=== PATIENT | male | born 1940 | race Caucasian/White ===

== ENCOUNTER 2017-01-03 14:31 | Inpatient (IN) | payer MEDICARE, MEDICAID ==
[2017-01-03 15:28] LABS: ABSOLUTE NEUTROPHIL COUNT 7.7 K/mm3 (1.8-7.7); BASO # 0.1 K/mm3 (0.0-0.2); BASO % 0.5 % (0.2-1.0); EOS % 0.2 % (0.9-2.9); HEMATOCRIT 32.6 % (32.0-52.0); IMM NEUT # 0.2 K/mm3 (0-0.2); IMM NEUT% 1.5 % (0-1); LYMPH % 9.4 % (15-45); MEAN CELL VOLUME 100.3 fl (80.0-94.0); MEAN CORPUSCULAR HEMOGLOBIN 30.8 pg (27.0-31.0); MEAN CORPUSCULAR HGB CONC 30.7 g/dl (33.0-37.0); MEAN PLATELET VOLUME 9.8 fl (7.4-10.4); MONO # 1.9 (0.0-0.8); MONO % 17.7 % (4-12); NEUT % 70.7 % (43-75); PLATELET COUNT 173 K/mm3 (130-400); RED CELL DISTRIBUTION WIDTH 15.9 % (11.5-14.5)
[2017-01-03 15:54] LABS: ALB/GLOB RATIO 0.8 (>1.0); ALBUMIN 3.7 gm/dL (3.5-5.7); CALCIUM 9.1 mg/dL (8.6-10.3)
[2017-01-03 15:55] LABS: CKMB ISOENZYME 1.9 ng/ml (0.6-6.3)
[2017-01-03 16:01] LABS: TROPONIN I 0.08 ng/ml (0.0-0.06)
--- NOTE | 2017-01-03 16:03 | RAD ---
CHEST-AP BEDSIDE HISTORY: Cough for 4 days. COMPARISONS: None. FINDINGS: An AP upright view of the chest was performed demonstrating prior median sternotomy with a metallic appliance projecting along the left cardiac margin. The heart size is borderline prominent. There is mild diffuse interstitial prominence observed with linear right basilar atelectasis or scarring identified. No effusion or pneumothorax is seen. The hilar and mediastinal structures are intact. IMPRESSION: 1. Borderline cardiac size. 2. Mild diffuse bilateral interstitial prominence which may reflect mild interstitial edema or possibly chronic changes. 3. Right basilar atelectasis or scarring. 4. Prior median sternotomy.
[2017-01-03] MEDS ORDERED: CEFTRIAXONE 1 GRAM DUPLEX 50 ML IV ONE (16:47)
[2017-01-03] MEDS ORDERED: AZITHROMYCIN 250 MG TABLET ONE (16:47)
[2017-01-03 16:49] LABS: SPECIFIC GRAVITY 1.015 (1.001-1.030); URINE BILIRUBIN NEGATIVE (NEGATIVE); URINE BLOOD 2+ (NEGATIVE); URINE GLUCOSE (UA) NEGATIVE (NEGATIVE); URINE LEUKOCYTE ESTERASE NEGATIVE (NEGATIVE); URINE NITRITE NEGATIVE (NEGATIVE); URINE PROTEIN TRACE (NEGATIVE); URINE UROBILINOGEN NORMAL (0-1 mg/dl)
[2017-01-03 16:51] LABS: URINE APPEARANCE CLEAR; URINE COLOR YELLOW
--- NOTE | 2017-01-03 16:52 | CT ---
Exam Type: ABD/PELVIS W/O CON Date and Time: 01/03/2017 4:02 PM Clinical information: Abdomen distention. Comparison: None Procedure: Imaging device: [employer] Aquilion [address] scanner 1 mm axial images were obtained through the abdomen and pelvis. Stacked reconstructed 3, 4 and 5 mm images were photographed in the axial coronal and sagittal planes. No oral contrast was utilized for this examination. Exam: Without intravenous contrast. FINDINGS: Lung bases: Scans through the lung bases demonstrate a small amount of right basilar pleural fluid which may be partially loculated. There is associated right basilar atelectasis or infiltrate noted as well. The heart size is enlarged with dense calcification of the mitral annulus. There is evidence of prior median sternotomy. Liver: the liver is homogeneous with no discrete abnormality visualized. No definite findings of biliary dilatation are observed. Spleen: The spleen is homogeneous and does not appear to be enlarged. Gallbladder: Normal without enlargement or evidence of adjacent inflammatory changes. Pancreas: Pancreatic tissue is not well visualized and may be significantly fatty infiltrated particularly in the region of the body and tail. There is what may be a small amount of pancreatic head tissue located adjacent to a solid-appearing mass on image 35 measuring 4.3 x 4.2 cm transversely. This may reflect a large lymph node or possibly a focal mass, possibly arising from the pancreas itself. Adrenal glands: Normal without enlargement or evidence of adjacent inflammatory changes. Abdominal aorta: Atherosclerotic vascular calcification is present. There is no focal aneurysm visualized. Kidneys: The kidneys are of symmetric size with no perinephric inflammatory stranding visualized. There is evidence of an 8 mm intrarenal calcification within the inferior portion of the right kidney. No ureteral calculus is visualized. Bowel structures: The visualized bowel is of normal caliber without evidence of dilatation or obstruction. No free fluid or mesenteric inflammatory changes are identified. Appendix: Not well visualized. Bladder: The bladder is of normal contour. No wall thickening or significant distention is observed. Hernia: Bilateral fat filled inguinal hernias are present. Adenopathy: A few retroperitoneal lymph nodes are identified with one on image 36 demonstrating a short axis dimension of 14 mm and another on image 42 demonstrating a short axis dimension of 7 mm. Osseous structures: Multilevel thoracic and lumbar degenerative changes are present with flowing lower thoracic osteophyte formation. Pelvic structures: No discrete pelvic abnormalities are visualized in this examination. IMPRESSION: 1. No current findings of obstruction identified. 2. Poor visualization of the pancreas which may be due to significant fatty infiltration. However, there is a solid 4.3 cm mass adjacent to the expected location of the pancreatic head with considerations including a primary neoplastic process possibly of pancreatic origin versus an enlarged lymph node. 3. Mild retroperitoneal adenopathy. 4. A partially loculated right pleural effusion with right basilar atelectasis or scarring. 5. Cardiomegaly with dense calcification of the mitral annulus. 6. An 8 mm right-sided intrarenal calculus. No definite ureteral calculus is observed. 7. Nonvisualization of the appendix. 8. Bilateral fat filled inguinal hernias. 9. Prominent thoracic and lumbar degenerative changes.
[2017-01-03 17:02] LABS: URINE BACTERIA 0; URINE EPITHELIAL CELLS 0 /hpf; URINE WBC RARE /hpf
[2017-01-03 19:46] VITALS: BMI 29.6
[2017-01-03] MEDS ORDERED: MAGNESIUM HYDROXIDE 30 ML UDCUP PO PRN (20:25)
[2017-01-03] MEDS ORDERED: ACETAMINOPHEN 325 MG TABLET PO PRN (20:25)
[2017-01-03] MEDS ORDERED: SODIUM CHLORIDE 0.9% 100 ML IV ONE (20:38)
[2017-01-03] MEDS ORDERED: PUMP TUBING ONE (20:39)
[2017-01-03] MEDS ORDERED: BLISTEX LIPSTICK 1 EACH TP PRN (20:43)
[2017-01-03] MEDS ORDERED: MENTHOL/CETYLPYRD 1 EACH LOZENGE PO PRN (20:43)
[2017-01-03] MEDS ORDERED: PROBENECID 500 MG TABLET PO SCH (21:00)
[2017-01-03] MEDS ORDERED: POTASSIUM CHLORIDE 20 MEQ TAB.PRT.SR PO SCH (21:00)
[2017-01-03] MEDS ORDERED: INSULIN ASPART (DOSE) 100 UNITS/1 ML SUB-Q PRN (21:07)
[2017-01-03 21:09] LABS: INR 1.6; PROTHROMBIN TIME 17.2 SECONDS (9.3-11.4)
[2017-01-03] MEDS ORDERED: BUMETANIDE 0.25 MG/ML 4ML VIAL IV ONE (21:09)
[2017-01-03] MEDS ORDERED: FUROSEMIDE 40 MG/4 ML VIAL IV ONE (21:20)
[2017-01-03] MEDS: DOXYCYCLINE HYCLATE 100 MG in NS 0.9% (MINI-BAG PLUS) 100 ML IV SCH (21:35)
[2017-01-03] MEDS: SODIUM CHLORIDE 0.9% 100 ML IV PRN (21:36)
[2017-01-03] MEDS: PANTOPRAZOLE 40 MG TABLET DR PO SCH (21:58)
[2017-01-03] MEDS: MIRTAZAPINE 15 MG TABLET PO SCH (21:58)
[2017-01-03] MEDS: ATORVASTATIN CALCIUM 40 MG TABLET PO SCH (21:59)
[2017-01-03] MEDS: PREGABALIN 50 MG CAP PO SCH (21:59)
[2017-01-03] MEDS: SENNA/DOCUSATE SODIUM 8.6/50 MG EACH TABLET PO SCH (22:00)
[2017-01-03] MEDS ORDERED: FLU VACC 2016-17 (65 YR+)/PF 180 MCG/0.5 ML SYRINGE IM V ONE (22:02)
[2017-01-03] MEDS ORDERED: PNEUMOCOCCAL 23-VAL P-SAC VAC 0.5 ML VIAL SUB-Q V ONE (22:02)
[2017-01-03] MEDS: ALBUTEROL NEB 2.5 MG/3 ML VIAL.NEB NEB PRN (23:47)
[2017-01-03] MEDS ORDERED: FUROSEMIDE 40 MG/4 ML VIAL ONE (23:58)
[2017-01-04] MEDS: CLOTRIMAZOLE 1% 15 APPLIC/15 G CREAM TP SCH ×3 (00:07→21:55)
[2017-01-04] MEDS: POTASSIUM CHLORIDE 20 MEQ TAB.PRT.SR PO SCH ×3 (00:09→15:33)
[2017-01-04 07:04] LABS: ABSOLUTE NEUTROPHIL COUNT 7.9 K/mm3 (1.8-7.7); BASO # 0.1 K/mm3 (0.0-0.2); BASO % 0.6 % (0.2-1.0); EOS % 0.3 % (0.9-2.9); HEMATOCRIT 32.8 % (32.0-52.0); HEMOGLOBIN 9.9 gm/l (14.0-18.0); IMM NEUT # 0.1 K/mm3 (0-0.2); IMM NEUT% 1.2 % (0-1); LYMPH # 0.9 (1.0-4.8); MEAN CORPUSCULAR HEMOGLOBIN 30.2 pg (27.0-31.0); MEAN CORPUSCULAR HGB CONC 30.2 g/dl (33.0-37.0); MEAN PLATELET VOLUME 9.6 fl (7.4-10.4); MONO # 1.6 (0.0-0.8); MONO % 15.1 % (4-12); NEUT % 74.8 % (43-75); PLATELET COUNT 163 K/mm3 (130-400); RED CELL DISTRIBUTION WIDTH 15.9 % (11.5-14.5)
[2017-01-04 07:15] LABS: INR 1.61; PROTHROMBIN TIME 17.3 SECONDS (9.3-11.4)
[2017-01-04 07:22] LABS: CALCIUM 8.9 mg/dL (8.6-10.3)
--- NOTE | 2017-01-04 07:28 | HP ---
Jorge Luis Castillo [id number] : 1940 DATE OF ADMISSION: 01/03/2017 IDENTIFICATION: Mr. Castillo is a 76-year-old followed by Dr. Migdalia Glass at [facility]. CHIEF COMPLAINT: Cough and shortness of breath. HISTORY OF PRESENT ILLNESS: Mr. Castillo recently moved to [facility] from another assisted living facility in [facility]. He has not previously been at [facility] and we have no previous records. He presented to the emergency room today with complaint of 4 day history of cough with green sputum and increasing shortness of breath. He has had weakness, but denies other symptoms. On evaluation he appeared to have pneumonia and congestive heart failure exacerbation and he was referred to the hospitalist service for admission and treatment. REVIEW OF SYSTEMS: HEENT: Denies lightheadedness, headache, or fainting. Denies problems with ears, eyes, nose, or throat. Respiratory: As per history of present illness. Cardiac: Denies chest pains or palpitations. Gastrointestinal: Denies nausea, vomiting, or reflux. Denies diarrhea, constipation, hematochezia, or melena. Genitourinary: Denies dysuria or urgency. Musculoskeletal: Generalized weakness. Constitutional: Denies fevers or chills. PAST MEDICAL HISTORY: 1. Diabetes mellitus type 2. 2. Diabetic peripheral neuropathy. 3. Dyslipidemia. 4. Major depressive disorder. 5. Obstructive sleep apnea not treated with CPAP. 6. Benign hypertension. 7. Coronary artery disease. 8. Pulmonary hypertension. 9. Mitral valve stenosis. 10. Aortic valve stenosis. 11. Chronic atrial fibrillation on warfarin anticoagulation. 12. Chronic diastolic congestive heart failure. 13. Gastroesophageal reflux disease. 14. Gout. 15. Macular degeneration and cataracts. PAST SURGICAL HISTORY: Unknown, patient denies having any surgery despite a median sternotomy scar and a vertical scar in the abdomen at the level of the umbilicus. He appears to have had at least right eye surgery as well. ALLERGIES: FROM THE MEDICATION ADMINISTRATION RECORDS FROM [facility] ALLOPURINOL, FUROSEMIDE, AND GABAPENTIN WERE LISTED. MEDICATIONS: 1. Atorvastatin 40 mg by mouth nightly. 2. Ferrous sulfate 325 mg by mouth daily. 3. Folic acid 1 mg by mouth daily. 4. Metoprolol succinate 12.5 mg by mouth daily. 5. Mirtazapine 7.5 mg by mouth nightly. 6. Omeprazole 20 mg by mouth daily. 7. Pregabalin 100 mg by mouth nightly. 8. Furosemide 60 mg in the morning, 40 mg in the evening. 9. Warfarin 5 mg Monday, Monday, Monday, Monday, 7.5 mg Monday, , Monday. 10. Potassium chloride 60 mg by mouth twice daily. 11. Probenecid 500 mg by mouth twice daily. 12. Acetaminophen 650 by mouth every 6 hours as needed. 13. Senna with docusate sodium 1 twice daily. 14. Fwgt-nr-mbbahxtm 30 mL by mouth daily as needed. HABITS: He denies any current or past history of alcohol or tobacco use. SOCIAL HISTORY: He is a resident of [facility], says he has been there for just a few weeks. He is single and has no family other than a brother who lives in [facility]. CODE STATUS: Discussed and he would like everything attempted. FAMILY HISTORY: He is not aware of any medical conditions that run in the family. PHYSICAL EXAM: GENERAL: This is an elderly gentleman with audible congestion and wheezing. VITAL SIGNS: Temperature 98.1 degrees Fahrenheit, blood pressure 113/77, pulse 98, respiratory rate 22, oxygen saturation was 81% on room air on presentation to the emergency department. HEENT: Head is atraumatic. Eyes show marked exophthalmoses. The right pupils is irregular, left is round and reactive. Oropharynx somewhat dry. CHEST: Inspiratory rhonchi and expiratory wheezes throughout. HEART: Regular with 3/6 harsh systolic murmur. There is a well healed midline sternotomy scar. ABDOMEN: Soft, obese, nontender, normal bowel tones. No organomegaly. As noted there is a well healed vertical scar at the level of the umbilicus and the umbilicus itself has been excised. EXTREMITIES: Moderate dorsalis pedis pulses. Trace edema with compression stocking on bilaterally. NEUROLOGIC: No focal deficits, but clearly has some memory deficits. LABORATORY: White blood cell count 10.9, hemoglobin and hematocrit 10.0 and 32.6, platelets 173. Lactate 1.4. Sodium 137, potassium 4.1, chloride 93, CO2 35, BUN 34, creatinine 1.9, glucose 142. CPK is 383, MB fraction normal at 1.9. Troponin I borderline at 0.08. B-type natiuretic peptide elevated at 566. Albumin is 3.7. Urinalysis specific gravity of 1.015, trace protein, 2+ blood, negative microscopic. Influenza A and B are negative. DIAGNOSTICS: Chest x-ray shows borderline cardiac size, bilateral interstitial prominence consistent with pulmonary edema and right basilar atelectasis or scarring. CT of the abdomen and pelvis multiple findings including poor visualization of the pancreas, but a possible solid mass at the pancreatic head, mild retroperitoneal adenopathy, partially loculated right pleural effusion, cardiomegaly with dense calcification of the mitral annulus, 8 mm right sided infrarenal calculus, absent appendix, bilateral fat filled inguinal hernia's, and prominent thoracic and lumbar degenerative changes. EKG atrial fibrillation with right bundle branch block rate controlled at 88. ASSESSMENT: Mr. Castillo is a 76-year-old who presents with: 1. Community acquired presumed bacterial pneumonia with sepsis (SIRS with tachycardia and tachypnea due to infection) 2. Acute on chronic diastolic heart failure. 3. Anemia which is probably chronic considering his iron and folate prescriptions, but unknown cause. 4. Renal insufficiency which is unclear if it is chronic, acute, or both. 5. Diabetes type 2 complicated by neuropathy. 6. Coronary artery disease possibly post bypass grafting. 7. Valvular heart disease with mitral and aortic stenosis. 8. Chronic atrial fibrillation on anticoagulation. 9. Mildly elevated troponin due to stress ischemia from the pneumonia and congestive heart failure exacerbation. This does not indicate an acute coronary syndrome. 10. Unclear degree of chronic dementia. 11. Multiple other conditions as listed above. PLAN: 1. Admit to med/surg. 2. Treatment for pneumonia with intravenous ceftriaxone and doxycycline. 3. Supplemental oxygen and nebulizer treatments. 4. Diuresis with intravenous furosemide and plan to check echocardiogram. 5. Repeat laboratories to further evaluate renal condition and anemia. 6. Diabetic diet. Blood sugars before meals and bedtime. Insulin coverage as necessary. 7. Physical and occupational therapy evaluation. 8. He was given a dose of azithromycin in the emergency department and his pro time is pending, but will probably be increased by the azithromycin. I will hold his warfarin tonight, but given that he is anticoagulated with warfarin he does not require additional venous thromboembolism prophylaxis. 9. Full code status. 10. Further care as indicated by clinical course. JOB: [id number]
[2017-01-04 07:43] LABS: FERRITIN 147.8 ng/mL (23.9-336.2)
[2017-01-04 07:46] LABS: FOLIC ACID > 23.7 ng/mL (>5.9)
[2017-01-04] MEDS: ALBUTEROL/IPRATROPIUM 2.5/0.5 MG 3 ML/EACH DOSE NEB SCH ×4 (08:31→20:03)
[2017-01-04] MEDS: METOPROLOL SUCCINATE 25 MG TAB.ER.24H PO SCH (08:36)
[2017-01-04] MEDS: FERROUS SULFATE (65 Fe) 325 MG TABLET PO SCH (08:36)
[2017-01-04] MEDS: DOXYCYCLINE HYCLATE 100 MG in NS 0.9% (MINI-BAG PLUS) 100 ML IV SCH ×2 (08:36→21:58)
[2017-01-04] MEDS: VENLAFAXINE HCL XR 150 MG CAPSULE.DR PO SCH (08:36)
[2017-01-04] MEDS: FUROSEMIDE 40 MG/4 ML VIAL IV SCH ×2 (08:36→15:33)
[2017-01-04] MEDS: SENNA/DOCUSATE SODIUM 8.6/50 MG EACH TABLET PO SCH ×2 (08:37→21:55)
[2017-01-04] MEDS: FOLIC ACID 1 MG TABLET PO SCH (08:37)
[2017-01-04] MEDS: PROBENECID 500 MG TABLET PO SCH ×2 (08:37→21:57)
[2017-01-04] MEDS: PANTOPRAZOLE 40 MG TABLET DR PO SCH (08:38)
--- NOTE | 2017-01-04 13:24 | PDOC43 ---
- Subjective Chief Complaint: cough with green sputum and dyspnea. Sitting up in chair receiving nebulizer treatment, coughing fit during exam but states that he is a little better, urinating a lot. - Objective Vital Signs Temperature 98.7 F 01/04/17 11:27 Pulse Rate 76 01/04/17 12:43 Respiratory Rate 18 01/04/17 12:43 Blood Pressure 113/75 01/04/17 11:27 O2 Saturation by Pulse Oximetry 92 01/04/17 12:43 Oxygen Delivery Method Nasal Cannula Oxygen Flow Rate 2 Intake and Output 01/03/17 01/04/17 01/05/17 06:59 06:59 06:59 Intake Total 825 Output Total 778 Balance 47 General: Alert, Cooperative, Mild Distress, No Oriented x3 HEENT: Mucous membr. moist/pink Lungs: Diminished at Bases, Other (crackles and exp wheezes but less than last p.m.) Cardiovascular: Regular Rate and Rhythm, Murmur (harsh 3/6 systolic) Abdomen: Soft, Normal Bowel Sounds, No Tenderness, No Masses Extremities: Edema (trace), Pulses Diminished but Palpable Neurological: Normal Speech Psych/Mental Status: Normal Mood Laboratory 01/04/17 06:10 01/04/17 06:10 01/04/17 01/04/17 01/04/17 11:37 06:56 06:10 RBC 3.28 L MCV 100.0 H MCHC 30.2 L RDW 15.9 H PT 17.3 H BUN 31 H Estimated GFR 42 L POC Capillary Glucose 172 H 148 H Iron 25 L % Immature Granulocyt 1.2 H 01/03/17 21:01 RBC MCV MCHC RDW PT BUN Estimated GFR POC Capillary Glucose 129 H Iron % Immature Granulocyt Current Medications: Current meds reviewed in EMR. - Problems: Assessment/Plan (1) CHF (congestive heart failure) Qualifiers: Congestive heart failure type: diastolic Congestive heart failure chronicity: acute on chronic Qualifier Code: (I50.33) Acute on chronic diastolic (congestive) heart failure Status: AcuteAssessment/Plan: History of chronic diastolic heart failure now in acute exacerbation. Continue diuresis and check ECHO for systolic component. (2) Pneumonia Qualifiers: Pneumonia type: due to unspecified organism Laterality: right Lung location: lower lobe of lung Qualifier Code: (J18.1) Lobar pneumonia, unspecified organism Status: AcuteAssessment/Plan: presumed bacterial pneumonia with purulent sputum present on admit. Sepsis secondary to bacterial pneumonia as defined by SIRS (pulse 98, resp rate 22 in ER) due to infection. Continue treatment with ceftriaxone and doxycycline. (3) Renal insufficiency Status: AcuteAssessment/Plan: Acute kidney injury improving with creatinine down from 1.9-->1.6 Likely underlying KCD, severity to be determined. (4) Weakness Status: AcuteAssessment/Plan: Due to acute CHF, Pneumonia, Sepsis. Will have PT/OT evaluation and treatment. (5) Anemia Qualifiers: Anemia type: iron deficiency Status: ChronicAssessment/Plan: Chronic iron deficiency and likely related to CKD as well, stable. (6) Aortic valvar stenosis Qualifiers: Cardiac valve disease etiology: nonrheumatic Qualifier Code: (I35.0) Nonrheumatic aortic (valve) stenosis Status: ChronicAssessment/Plan: and chronic mitral stenosis, contributing to chronic and acute hear failure, check ECHO for severity. (7) Atrial fibrillation Qualifiers: Atrial fibrillation type: chronic Qualifier Code: (I48.2) Chronic atrial fibrillation Status: ChronicAssessment/Plan: Rate controlled and anti-coagulated but INR is sub-therapeutic, Warfarin per pharmacy (8) CAD (coronary artery disease) Qualifiers: Coronary Disease-Associated Artery/Lesion type: [place] artery [place] vs. transplanted heart: [place] heart Associated angina: without angina Qualifier Code: (I25.10) Atherosclerotic heart disease of [place] coronary artery without angina pectoris Status: ChronicAssessment/Plan: Stable, no ACS. Borderline elevated troponin on admit due to strain of acute CHF and pneumonia. (9) Depression Qualifiers: Depression Type: major depressive disorder Major depression recurrence : recurrent Major depression episode severity: unspecified Status: Chronic Assessment/Plan: Continue Venlafixine and Mirtazapine (10) Diabetes type 2, controlled Qualifiers: Diabetes mellitus complication status: with neurologic complications Diabetes mellitus complication detail: with polyneuropathy Diabetes mellitus predatory animal exterminator insulin use: without detention use Qualifier Code: ( E11.42) Type 2 diabetes mellitus with diabetic polyneuropathy Status: ChronicAssessment/Plan: Diet controlled at baseline, continue correction dose insulin as needed. VTE Prophylaxis: warfarin Disposition: Return to [facility] vs. SNF rehab in 2-4 days.
[2017-01-04] MEDS: CEFTRIAXONE 1 GRAM DUPLEX 1 G in Premix (D5W) 50 ml 1 EACH IV SCH (15:33)
[2017-01-04] MEDS ORDERED: WARFARIN SODIUM 5 MG TABLET PO SCH (16:00)
[2017-01-04] MEDS ORDERED: WARFARIN PER PHARMACY 1 EACH DOSE PO SCH (16:00)
[2017-01-04 20:43] LABS: INR 1.66
[2017-01-04] MEDS: MIRTAZAPINE 15 MG TABLET PO SCH (21:55)
[2017-01-04] MEDS: ATORVASTATIN CALCIUM 40 MG TABLET PO SCH (21:56)
[2017-01-04] MEDS: PREGABALIN 50 MG CAP PO SCH (21:56)
[2017-01-05 06:59] LABS: ABSOLUTE NEUTROPHIL COUNT 5.3 K/mm3 (1.8-7.7); BASO % 0.5 % (0.2-1.0); EOS # 0.1 (0.0-0.5); EOS % 1.6 % (0.9-2.9); HEMATOCRIT 31.8 % (32.0-52.0); HEMOGLOBIN 9.5 gm/l (14.0-18.0); IMM NEUT # 0.1 K/mm3 (0-0.2); LYMPH # 1.2 (1.0-4.8); MEAN CORPUSCULAR HEMOGLOBIN 29.9 pg (27.0-31.0); MEAN CORPUSCULAR HGB CONC 29.9 g/dl (33.0-37.0); MEAN PLATELET VOLUME 9.6 fl (7.4-10.4); MONO % 13.5 % (4-12); NEUT % 68.4 % (43-75); PLATELET COUNT 137 K/mm3 (130-400); RED CELL DISTRIBUTION WIDTH 16.2 % (11.5-14.5)
[2017-01-05] MEDS: ALBUTEROL/IPRATROPIUM 2.5/0.5 MG 3 ML/EACH DOSE NEB SCH ×5 (07:57→20:33)
[2017-01-05 09:13] LABS: INR 1.52; PROTHROMBIN TIME 16.3 SECONDS (9.3-11.4)
[2017-01-05] MEDS: DOXYCYCLINE HYCLATE 100 MG in NS 0.9% (MINI-BAG PLUS) 100 ML IV SCH ×2 (09:27→20:31)
[2017-01-05] MEDS: VENLAFAXINE HCL XR 150 MG CAPSULE.DR PO SCH (09:27)
[2017-01-05] MEDS: SENNA/DOCUSATE SODIUM 8.6/50 MG EACH TABLET PO SCH ×2 (09:27→20:32)
[2017-01-05] MEDS: FUROSEMIDE 40 MG/4 ML VIAL IV SCH ×2 (09:27→16:26)
[2017-01-05] MEDS: PANTOPRAZOLE 40 MG TABLET DR PO SCH (09:28)
[2017-01-05] MEDS: PROBENECID 500 MG TABLET PO SCH ×2 (09:28→20:32)
[2017-01-05] MEDS: ASCORBIC ACID 250 MG TABLET PO SCH (09:28)
[2017-01-05] MEDS: POTASSIUM CHLORIDE 20 MEQ TAB.PRT.SR PO SCH ×2 (09:28→16:26)
[2017-01-05] MEDS: FERROUS SULFATE (65 Fe) 325 MG TABLET PO SCH (09:28)
[2017-01-05] MEDS: METOPROLOL SUCCINATE 25 MG TAB.ER.24H PO SCH (09:28)
[2017-01-05] MEDS: FOLIC ACID 1 MG TABLET PO SCH (09:29)
--- NOTE | 2017-01-05 13:49 | RAD ---
Exam: Two-view chest COMPARISON: 01/03/[address] abdomen 01/03/2017 INDICATION: Suspected pneumonia. FINDINGS: PA and lateral views of the chest were obtained. Postsurgical changes of median sternotomy and valve replacement are again appreciated. Left atrial appendage clip is noted. Cardiomegaly is similar. Lungs are well-inflated. Right basilar pleural-parenchymal disease seen on recent CT remains. Minor blunting of the left costophrenic angle is noted and also stable, reflecting underlying scarring. Upper lungs are clear. Bridging osteophytes are seen within the spine. IMPRESSION: Right basilar pleural-parenchymal disease, similar to that seen on CT 2 days ago, which is of uncertain chronicity and therefore radiology given lack of remote comparison. Pneumonia cannot be excluded.
--- NOTE | 2017-01-05 14:40 | PDOC43 ---
- Subjective Chief Complaint: cough with green sputum and dyspnea. Subjective: Reports Tolerating Diet Well, Reports Shortness of Breath (and mild hypoxia with exertion), Denies Chest Pain, Denies Fever - Objective Vital Signs Temperature 97.8 F 01/05/17 11:53 Pulse Rate 70 01/05/17 12:10 Respiratory Rate 18 01/05/17 13:51 Blood Pressure 107/71 01/05/17 12:00 O2 Saturation by Pulse Oximetry 93 01/05/17 12:10 Oxygen Delivery Method Room Air Oxygen Flow Rate 0 Intake and Output 01/04/17 01/05/17 01/06/17 06:59 06:59 06:59 Intake Total 825 2255 620 Output Total 778 1350 Balance 47 905 620 General: Alert, Oriented x3, Cooperative, No Acute Distress HEENT: Mucous membr. moist/pink Lungs: Other (ronchi over right base) Cardiovascular: Regular Rate and Rhythm Abdomen: Soft, Normal Bowel Sounds, Non-Distended, No Tenderness Extremities: Edema (one plus) Skin: Warm, Dry, Intact Laboratory 01/05/17 06:15 01/05/17 06:15 01/05/17 01/05/17 01/05/17 12:19 08:50 06:15 RBC 3.18 L MCV 100.0 H MCHC 29.9 L RDW 16.2 H PT 16.3 H BUN 33 H Estimated GFR 45 L POC Capillary Glucose 116 H 01/04/17 01/04/17 01/04/17 21:54 18:45 16:38 RBC MCV MCHC RDW PT 18.0 H BUN Estimated GFR POC Capillary Glucose 150 H 143 H Current Medications: Current meds reviewed in EMR. - Problems: Assessment/Plan (1) CHF (congestive heart failure) Qualifiers: Congestive heart failure type: diastolic Congestive heart failure chronicity: acute on chronic Qualifier Code: (I50.33) Acute on chronic diastolic (congestive) heart failure Status: AcuteAssessment/Plan: History of chronic diastolic heart failure now in acute exacerbation. Continue diuresis and ECHO shows LVEF of 40-45%. (2) Pneumonia Qualifiers: Pneumonia type: due to unspecified organism Laterality: right Lung location: lower lobe of lung Qualifier Code: (J18.1) Lobar pneumonia, unspecified organism Status: AcuteAssessment/Plan: presumed bacterial pneumonia with purulent sputum present on admit. Sepsis secondary to bacterial pneumonia as defined by SIRS (pulse 98, resp rate 22 in ER) due to infection. Continue treatment with ceftriaxone and doxycycline. (3) Renal insufficiency Status: AcuteAssessment/Plan: Acute kidney injury improving with creatinine down from 1.9-->1.5 Likely underlying CKD, severity to be determined. (4) Weakness Status: AcuteAssessment/Plan: Due to acute CHF, Pneumonia, Sepsis. Will have PT/OT evaluation and treatment. (5) Aortic valvar stenosis Qualifiers: Cardiac valve disease etiology: nonrheumatic Qualifier Code: (I35.0) Nonrheumatic aortic (valve) stenosis Status: ChronicAssessment/Plan: and chronic mitral stenosis S/P aortic and mitral valve replacements - stable (6) Atrial fibrillation Qualifiers: Atrial fibrillation type: chronic Qualifier Code: (I48.2) Chronic atrial fibrillation Status: ChronicAssessment/Plan: Rate controlled and anti-coagulated but INR is sub-therapeutic, Warfarin per pharmacy (7) CAD (coronary artery disease) Qualifiers: Coronary Disease-Associated Artery/Lesion type: [place] artery [place] vs. transplanted heart: [place] heart Associated angina: without angina Qualifier Code: (I25.10) Atherosclerotic heart disease of [place] coronary artery without angina pectoris Status: ChronicAssessment/Plan: Stable, no ACS. Borderline elevated troponin on admit due to strain of acute CHF and pneumonia. (8) Depression Qualifiers: Depression Type: major depressive disorder Major depression recurrence : recurrent Major depression episode severity: unspecified Status: Chronic Assessment/Plan: Continue Venlafixine and Mirtazapine (9) Diabetes type 2, controlled Qualifiers: Diabetes mellitus complication status: with neurologic complications Diabetes mellitus complication detail: with polyneuropathy Diabetes mellitus longterm insulin use: without longterm use Qualifier Code: ( E11.42) Type 2 diabetes mellitus with diabetic polyneuropathy Status: ChronicAssessment/Plan: Diet controlled at baseline, continue correction dose insulin as needed. VTE Prophylaxis: warfarin Disposition: Return to [facility] in am, may need home oxygen
[2017-01-05] MEDS: CLOTRIMAZOLE 1% 15 APPLIC/15 G CREAM TP SCH ×2 (14:42→22:30)
[2017-01-05] MEDS ORDERED: WARFARIN SODIUM 7.5 MG TABLET PO ONE (16:00)
[2017-01-05] MEDS ORDERED: PUMP TUBING ONE (16:18)
[2017-01-05] MEDS: SODIUM CHLORIDE 0.9% 100 ML IV PRN (16:26)
[2017-01-05] MEDS: CEFTRIAXONE 1 GRAM DUPLEX 1 G in Premix (D5W) 50 ml 1 EACH IV SCH (16:26)
[2017-01-05] MEDS: ENOXAPARIN SODIUM 100 MG/ML SYRINGE SUB-Q SCH (16:53)
[2017-01-05] MEDS: PREGABALIN 50 MG CAP PO SCH (20:31)
[2017-01-05] MEDS: ATORVASTATIN CALCIUM 40 MG TABLET PO SCH (20:31)
[2017-01-05] MEDS: MIRTAZAPINE 15 MG TABLET PO SCH (20:32)
[2017-01-06] MEDS ORDERED: IV START KIT ONE (00:23)
[2017-01-06] MEDS ORDERED: SODIUM CHLORIDE 0.9% FLUSH 10 ML ONE (00:23)
[2017-01-06] MEDS: ALBUTEROL NEB 2.5 MG/3 ML VIAL.NEB NEB PRN (01:29)
[2017-01-06] MEDS: ENOXAPARIN SODIUM 100 MG/ML SYRINGE SUB-Q SCH (05:06)
[2017-01-06 06:32] LABS: INR 1.86; PROTHROMBIN TIME 20.2 SECONDS (9.3-11.4)
[2017-01-06] MEDS: ALBUTEROL/IPRATROPIUM 2.5/0.5 MG 3 ML/EACH DOSE NEB SCH ×2 (08:12→11:31)
[2017-01-06] MEDS: METOPROLOL SUCCINATE 25 MG TAB.ER.24H PO SCH (08:59)
[2017-01-06] MEDS: PROBENECID 500 MG TABLET PO SCH (08:59)
[2017-01-06] MEDS: DOXYCYCLINE HYCLATE 100 MG in NS 0.9% (MINI-BAG PLUS) 100 ML IV SCH (08:59)
[2017-01-06] MEDS: VENLAFAXINE HCL XR 150 MG CAPSULE.DR PO SCH (08:59)
[2017-01-06] MEDS: ASCORBIC ACID 250 MG TABLET PO SCH (09:00)
[2017-01-06] MEDS: CLOTRIMAZOLE 1% 15 APPLIC/15 G CREAM TP SCH (09:00)
[2017-01-06] MEDS: SENNA/DOCUSATE SODIUM 8.6/50 MG EACH TABLET PO SCH (09:00)
[2017-01-06] MEDS: FERROUS SULFATE (65 Fe) 325 MG TABLET PO SCH (09:00)
[2017-01-06] MEDS: FOLIC ACID 1 MG TABLET PO SCH (09:00)
[2017-01-06] MEDS: PANTOPRAZOLE 40 MG TABLET DR PO SCH (09:00)
[2017-01-06] MEDS: FUROSEMIDE 40 MG/4 ML VIAL IV SCH (09:00)
[2017-01-06] MEDS: POTASSIUM CHLORIDE 20 MEQ TAB.PRT.SR PO SCH (09:00)
[2017-01-06 12:21] VITALS: BP 120/66
--- NOTE | 2017-01-06 12:58 | PDOC36 ---
Provider Note Subject: Oxygen levels Note: Pt's oximetry on admit 01/03 was 77% on room air. On 01/05, he had sats of 84% on RA with activity. He is able to maintain sats of 92-95% with 2 L O2 per nasal cannula.
--- NOTE | 2017-01-06 14:05 | DS ---
Jorge Luis Castillo [id number] DATE OF ADMISSION: 01/03/2017 DATE OF DISCHARGE: 01/06/2017 DISCHARGE DIAGNOSES: 1. Acute on chronic diastolic congestive heart failure. 2. Community acquired right lower lobe bacterial pneumonia, organisms unspecified associated with sepsis. 3. Acute kidney injury with underlying chronic stage III kidney disease. 4. Generalized weakness. 5. History of nonrheumatic aortic and chronic mitral valve stenosis, status post mitral valve replacements. 6. Chronic atrial fibrillation anticoagulated on Coumadin. 7. Coronary artery disease involving the [place] vessels without angina. 8. Chronic depression recurrent on antidepressive therapy. 9. Diet controlled adult onset diabetes. 10. Solid mass measuring 4.3 cm at the head of the pancreas of uncertain significance. PROCEDURES PERFORMED DURING THE HOSPITALIZATION: Included an echocardiogram performed on 01/04/2017 showing a mildly reduced ejection fraction of 45%, prosthetic mitral valve well seated with moderate elevation and gradient suggestive of moderate stenosis, prosthetic aortic valve which is well seated with mild elevation in gradient, moderate pulmonary hypertension represented by elevated right ventricular systolic pressures estimated at 55 mmHg. TO SUMMARIZE THE ADMISSION AND HOSPITAL COURSE: The patient is a 76-year-old male followed at [facility] for his multiple medical problems who recently moved to [facility] and presented with complaints of cough and shortness of breath symptoms. Workup in the emergency department showed evidence of pneumonia as well as possible congestive heart failure. He was afebrile initially. He had a white blood cell count mildly elevated at 10.9, creatinine elevated at 1.9, troponin borderline at 0.08. B-type natiuretic peptide elevated at 566. Influenza A and B testing were negative. Chest x-ray showed diffuse interstitial prominence and right basilar infiltrate as well as some borderline cardiac size. Other imaging studies done in the emergency department included a CT of the abdomen and pelvis showing a 4.3 cm mass in the head of the pancreas which appeared to be solid. On the CT he also had some mild retroperitoneal adenopathy seen on CT. Patient was admitted to the hospitalist service and was treated with hydration, Rocephin, and doxycycline. He had hypoxemia requiring oxygen supplementation during his stay which was persistent, but improving. He had some improvement in his white blood cell count down to 7.7 on the day prior to discharge. His INR was subtherapeutic through much of the stay initially at 1.6. He was given Lovenox and by the time of his discharge his INR had improved up to 1.86, but was still slightly subtherapeutic. His chemistry profiles showed some improvement in his creatinine from 1.9 down to 1.5. He was given IV Lasix 40 mg IV twice daily during his stay instead of his usual oral dose. B12 and folate level was measured and both were normal. A TSH level was also measured and was in the normal range. He was felt to be medically stable for discharge on March 08 although, he still has very mild hypoxia with oxygen saturations down 88% on room air at times and so home oxygen supplementation was prescribed. PHYSICAL EXAMINATION: VITALS: At discharge showed a body mass index of 29.6, a weight of 99 kg, temperature 98.4, pulse 89, blood pressure 136/78, respirations 18, oxygen saturations varied between 88% and 95% on room air, he is at 93% currently on 1 liters. GENERAL: This is an elderly male in no acute distress. HEENT: Unremarkable. LUNGS: Clear to auscultation bilaterally. CARDIOVASCULAR: Reveals a regular rate and rhythm without a murmur. EXTREMITIES: Show trace to 1+ pitting edema with compression stockings in place. LABORATORY STUDIES: On the day prior to discharge his CBC showed a white count of 7.7, hemoglobin of 9.5, and a platelet count of 137,000. Chemistry profile showed a sodium of 139, potassium 4.2, BUN 33, creatinine 1.5. DISPOSITION: Back to [facility] in [place]. He will be referred to home health services for outpatient physical therapy and occupational therapy. Through [facility] we ordered oxygen at 1 liter by nasal cannula with activity and at rest. FOLLOW UP: He has a follow up appointment scheduled with his primary care provider, Quan Underwood a physician offset assistant press operator at [facility], the appointment is on January 10 at 9:00 a.m. DISCHARGE MEDICATIONS: Will include: 1. Cefdinir 300 mg by mouth twice daily for 7 days. 2. Doxycycline 100 mg by mouth twice daily for 7 days. He is going to resume his previous home medications which include: 1. Effexor ER 150 mg daily. 2. Probenecid 250 mg by mouth twice daily. 3. Rwuy-j-vklgsbje 30 mL daily as needed. 4. Senna Plus one tablet twice daily. 5. Tylenol 650 mg every 6 hours as needed for pain or fever. 6. Warfarin dose has been increased to 7.5 mg daily. 7. He will resume potassium chloride 60 mEq twice daily. 8. Lasix 40 mg by mouth every evening. 9. Lasix 60 mg every morning. 10. Lyrica 100 mg at bedtime. 11. Prilosec 20 mg daily. 12. Remeron 7.5 mg daily. 13. Toprol XL 12.5 mg daily. 14. Folic acid 1 mg daily. 15. Iron sulfate 325 mg daily. 16. Lipitor 40 mg at bedtime. 17. He also will resume Lotrimin 1% cream applied to rash in the skin folds twice daily for 45 days. VACCINATIONS: He received an influenza vaccination and a Pneumococcal vaccination both on 01/04/2017. DISCHARGE CONDITION: Fair. CODE STATUS: Full. ALLERGIES: INCLUDE ALLOPURINOL AND GABAPENTIN. DISCHARGE DIET: Cardiac diet. JOB: [id number]
--- NOTE | 2017-01-06 15:39 | PDOC36 ---
Provider Note Subject: Note requested by Kenny. 3:36 pm 01/06/17 Note: In regard to Oxygen therapy: Patient is stable for discharge, and respiratory status due to pneumonia appears to be healing appropriately. His congestive heart failure appears to be stable and chronic.
== END 2017-01-06 15:25 | DRG 871 ==
LOC: ED 14:31 → MS 16:47
PROVIDERS: ADMIT Family Medicine; ATTEND Family Medicine
DX: A41.9 Sepsis, unspecified organism (principal); J15.9 Unspecified bacterial pneumonia; I50.33 Acute on chronic diastolic (congestive) heart failure; I13.0 Hypertensive heart and chronic kidney disease with heart failure and stage 1 through stage 4 chronic kidney disease, or unspecified chronic kidney disease; N17.9 Acute kidney failure, unspecified; N18.3 Chronic kidney disease, stage 3 (moderate); I48.2 Chronic atrial fibrillation; Z79.01 Long term (current) use of anticoagulants; I25.10 Atherosclerotic heart disease of native coronary artery without angina pectoris; F32.9 Major depressive disorder, single episode, unspecified; E11.9 Type 2 diabetes mellitus without complications; K86.9 Disease of pancreas, unspecified; Z23 Encounter for immunization; I35.0 Nonrheumatic aortic (valve) stenosis; E11.42 Type 2 diabetes mellitus with diabetic polyneuropathy